=== PATIENT | female | born 1955 | race Caucasian/White ===

== ENCOUNTER 2023-11-23 14:23 | Emergency (ER) | payer MEDICARE, OTHER | END 2023-11-23 17:58 | disposition home or self-care (01) | LOC: JP.ED 14:23 | DX: S20.212A Contusion of left front wall of thorax, initial encounter (principal); I10 Essential (primary) hypertension; Z87.891 Personal history of nicotine dependence; Z79.899 Other long term (current) drug therapy; Z88.5 Allergy status to narcotic agent; Z91.018 Allergy to other foods; Z91.010 Allergy to peanuts; V18.4XXA Pedal cycle driver injured in noncollision transport accident in traffic accident, initial encounter | CPT/HCPCS: 71101-26; 71101-LT; 99283 ==